=== PATIENT | female | born 1970 | race African-American/Black ===

== ENCOUNTER 2017-03-07 08:51 | Inpatient (IN) | payer MEDICAID, OTHER ==
[2017-03-07] MEDS ORDERED: ALUMINUM/MAGNESIUM 30 ML SUS PO ONE (09:26)
[2017-03-07] MEDS ORDERED: KETOROLAC TROMETHAMINE 30 MG/ML SOL ONE (09:31)
[2017-03-07] MEDS ORDERED: KETOROLAC TROMETHAMINE 30 MG/ML SOL IM ONE (09:39)
[2017-03-07] MEDS ORDERED: LIDOCAINE HCL 2% (VISCOUS) 20 ML SOL MT ONE (09:40)
[2017-03-07 09:42] LABS: HEMATOCRIT 43 % (35-47); MEAN CORPUSCULAR HGB CONC 34.1 gm/dl (32.0-36.0); MEAN CORPUSCULAR VOLUME 94 fL (81-99)
[2017-03-07] MEDS ORDERED: ALUMINUM/MAGNESIUM 30 ML SUS ONE (09:43)
[2017-03-07] MEDS ORDERED: LIDOCAINE HCL 2% (VISCOUS) 20 ML SOL ONE (09:44)
[2017-03-07] MEDS ORDERED: ONDANSETRON 4 MG ODT BU ONE (09:46)
[2017-03-07] MEDS ORDERED: ONDANSETRON 4 MG ODT ONE (09:47)
[2017-03-07 09:54] LABS: ALBUMIN 4.3 gm/dl (3.4-5.0); CALCIUM 8.9 mg/dl (8.5-10.1); POTASSIUM 3.8 mMol/L (3.5-5.1)
[2017-03-07 10:02] LABS: BASOPHILS % (MANUAL) 0 % (0-3); EOSINOPHILS % (MANUAL) 0 % (0-9); LYMPHOCYTES % (MANUAL) 30 % (10-50)
[2017-03-07 10:03] LABS: NORMAL RBCS PRESENT
[2017-03-07] MEDS ORDERED: SODIUM CHLORIDE 0.9% 1000 ML SOL IV ONE (10:20)
[2017-03-07] MEDS ORDERED: HYDROMORPHONE HCL 2 MG/ML 1 ML SOL IV ONE ×2 (10:24→19:11)
[2017-03-07] MEDS ORDERED: HYDROMORPHONE HCL 2 MG/ML 1 ML SOL ONE (10:27)
[2017-03-07] MEDS ORDERED: HYDROMORPHONE HCL 2 MG/ML 1 ML SOL IV PRN (11:24)
[2017-03-07] MEDS: DEXTROSE/SALINE 0.45/KCL 20MEQ 1,000 ML/1,000 ML SOL IV SCH ×2 (12:47→20:01)
[2017-03-07] MEDS: HYDROMORPHONE HCL 2 MG/ML 1 ML SOL IV PRN ×5 (13:33→22:30)
[2017-03-07] MEDS: KETOROLAC TROMETHAMINE 30 MG/ML SOL IV PRN (17:08)
[2017-03-07] MEDS: ONDANSETRON HCL 4 MG/2 ML SOL IV PRN (20:42)
[2017-03-08] MEDS: HYDROMORPHONE HCL 2 MG/ML 1 ML SOL IV PRN ×10 (00:34→22:31)
[2017-03-08] MEDS: KETOROLAC TROMETHAMINE 30 MG/ML SOL IV PRN ×3 (01:46→14:38)
[2017-03-08] MEDS: LORAZEPAM 2 MG/ML SOL IV PRN ×7 (01:49→22:31)
[2017-03-08] MEDS: SODIUM CHLORIDE 0.9% FLUSH 10 ML SOL IV PRN ×8 (02:53→17:00)
[2017-03-08] MEDS: DEXTROSE/SALINE 0.45/KCL 20MEQ 1,000 ML/1,000 ML SOL IV SCH ×3 (02:53→18:05)
[2017-03-08 07:22] LABS: ALBUMIN 3.4 gm/dl (3.4-5.0); CALCIUM 7.7 mg/dl (8.5-10.1); POTASSIUM 3.6 mMol/L (3.5-5.1)
[2017-03-08] MEDS ORDERED: NICOTINE 21 MG PATCH TD PRN (09:06)
[2017-03-08] MEDS: ONDANSETRON HCL 4 MG/2 ML SOL IV PRN (20:13)
[2017-03-09] MEDS: HYDROMORPHONE HCL 2 MG/ML 1 ML SOL IV PRN ×11 (00:54→23:06)
[2017-03-09] MEDS: LORAZEPAM 2 MG/ML SOL IV PRN ×4 (00:54→07:49)
[2017-03-09] MEDS: DEXTROSE/SALINE 0.45/KCL 20MEQ 1,000 ML/1,000 ML SOL IV SCH ×3 (01:00→17:13)
[2017-03-09 07:43] LABS: BASOPHILS % (AUTO) 1 % (0-3); EOSINOPHILS % (AUTO) 2 % (0-9); HEMATOCRIT 36 % (35-47); MEAN CORPUSCULAR HGB CONC 33.3 gm/dl (32.0-36.0); MEAN CORPUSCULAR VOLUME 95 fL (81-99); MONOCYTES % (AUTO) 7.7 % (0-12); NEUTROPHILS % (AUTO) 62.8 % (37-80)
[2017-03-09] MEDS: KETOROLAC TROMETHAMINE 30 MG/ML SOL IV PRN ×3 (07:49→21:06)
[2017-03-09] MEDS: SODIUM CHLORIDE 0.9% FLUSH 10 ML SOL IV PRN ×9 (07:50→23:06)
[2017-03-09 07:53] LABS: CALCIUM 8.1 mg/dl (8.5-10.1); POTASSIUM 3.7 mMol/L (3.5-5.1)
[2017-03-09] MEDS: ONDANSETRON HCL 4 MG/2 ML SOL IV PRN (21:06)
[2017-03-10] MEDS: DEXTROSE/SALINE 0.45/KCL 20MEQ 1,000 ML/1,000 ML SOL IV SCH ×4 (00:17→21:42)
[2017-03-10] MEDS: HYDROMORPHONE HCL 2 MG/ML 1 ML SOL IV PRN ×11 (01:08→23:25)
[2017-03-10] MEDS: SODIUM CHLORIDE 0.9% FLUSH 10 ML SOL IV PRN ×13 (01:08→23:26)
[2017-03-10] MEDS: KETOROLAC TROMETHAMINE 30 MG/ML SOL IV PRN ×3 (03:38→18:12)
[2017-03-10 07:31] LABS: BASOPHILS % (AUTO) 1 % (0-3); EOSINOPHILS % (AUTO) 3 % (0-9); HEMATOCRIT 32 % (35-47); MEAN CORPUSCULAR HGB CONC 33.9 gm/dl (32.0-36.0); MEAN CORPUSCULAR VOLUME 96 fL (81-99); MONOCYTES % (AUTO) 8.3 % (0-12)
[2017-03-10 07:49] LABS: CALCIUM 8.1 mg/dl (8.5-10.1); POTASSIUM 4.2 mMol/L (3.5-5.1)
[2017-03-10] MEDS ORDERED: HYDROMORPHONE HCL 2 MG/ML 1 ML SOL ONE ×4 (16:37→23:20)
[2017-03-10] MEDS: ONDANSETRON HCL 4 MG/2 ML SOL IV PRN (23:25)
[2017-03-11] MEDS ORDERED: HYDROMORPHONE HCL 2 MG/ML 1 ML SOL ONE ×4 (02:00→09:13)
[2017-03-11] MEDS: HYDROMORPHONE HCL 2 MG/ML 1 ML SOL IV PRN ×9 (02:03→23:25)
[2017-03-11] MEDS: KETOROLAC TROMETHAMINE 30 MG/ML SOL IV PRN ×4 (03:07→22:19)
[2017-03-11] MEDS: SODIUM CHLORIDE 0.9% FLUSH 10 ML SOL IV PRN ×7 (03:07→16:11)
[2017-03-11] MEDS: DEXTROSE/SALINE 0.45/KCL 20MEQ 1,000 ML/1,000 ML SOL IV SCH ×3 (04:42→20:04)
[2017-03-11 07:23] LABS: BASOPHILS % (AUTO) 1 % (0-3); EOSINOPHILS % (AUTO) 3 % (0-9); HEMATOCRIT 31 % (35-47); MEAN CORPUSCULAR HGB CONC 34.5 gm/dl (32.0-36.0); MEAN CORPUSCULAR VOLUME 95 fL (81-99); MONOCYTES % (AUTO) 8.1 % (0-12); NEUTROPHILS % (AUTO) 33.4 % (37-80)
[2017-03-11] MEDS: ONDANSETRON HCL 4 MG/2 ML SOL IV PRN ×3 (07:30→20:44)
[2017-03-11 07:33] LABS: ALBUMIN 2.9 gm/dl (3.4-5.0); POTASSIUM 4.6 mMol/L (3.5-5.1)
[2017-03-12] MEDS: HYDROMORPHONE HCL 2 MG/ML 1 ML SOL IV PRN ×5 (01:48→15:29)
[2017-03-12] MEDS: SODIUM CHLORIDE 0.9% FLUSH 10 ML SOL IV PRN ×4 (01:48→11:24)
[2017-03-12] MEDS: DEXTROSE/SALINE 0.45/KCL 20MEQ 1,000 ML/1,000 ML SOL IV SCH ×2 (03:30→04:30)
[2017-03-12] MEDS: ONDANSETRON HCL 4 MG/2 ML SOL IV PRN ×2 (06:42→14:10)
[2017-03-12] MEDS: KETOROLAC TROMETHAMINE 30 MG/ML SOL IV PRN (06:43)
[2017-03-12 07:23] LABS: BASOPHILS % (AUTO) 1 % (0-3); EOSINOPHILS % (AUTO) 3 % (0-9); HEMATOCRIT 33 % (35-47); MEAN CORPUSCULAR HGB CONC 33.9 gm/dl (32.0-36.0); MEAN CORPUSCULAR VOLUME 95 fL (81-99); MONOCYTES % (AUTO) 7.8 % (0-12); NEUTROPHILS % (AUTO) 46.9 % (37-80)
[2017-03-12 07:25] LABS: ALBUMIN 2.9 gm/dl (3.4-5.0); POTASSIUM 4.2 mMol/L (3.5-5.1)
[2017-03-12] MEDS ORDERED: DEXTROSE/SALINE 0.45/KCL 20MEQ 1,000 ML/1,000 ML SOL IV SCH (07:58)
[2017-03-12] MEDS ORDERED: HYDROMORPHONE HCL 2 MG/ML 1 ML SOL IV PRN ×2 (07:59→17:12)
[2017-03-12 08:38] VITALS: PULSE 71; RESP 20
[2017-03-12] MEDS ORDERED: KETOROLAC TROMETHAMINE 30 MG/ML SOL IV PRN (12:37)
[2017-03-12] MEDS ORDERED: PANTOPRAZOLE SODIUM 40 MG/10 ML PDS ONE (14:06)
[2017-03-12 15:47] VITALS: BP 180/109; TEMP 98; O2SAT 98
[2017-03-12] MEDS ORDERED: ACETAMINOPHEN 325 MG PO PRN (17:11)
[2017-03-13] MEDS ORDERED: PANTOPRAZOLE SODIUM 40 MG/10 ML PDS IV SCH (13:00)
== END 2017-03-12 17:54 | disposition left against medical advice (07) | DRG 440 ==
LOC: ED 08:51 → ACUTE CARE 11:00 → UNDOADMIN 11:00 → ACUTE CARE 11:35
PROVIDERS: ADMIT Emergency Medicine; ATTEND Emergency Medicine
DX: K85.90 Acute pancreatitis without necrosis or infection, unspecified (principal); Z91.19 Patient's noncompliance with other medical treatment and regimen; Z72.0 Tobacco use
CPT/HCPCS: 36415; 74177; 80048; 80053; 82150; 85007; 85025; 85027; 94762; 99285; J1170; J1885; J2060; J2405; Q9967

== ENCOUNTER 2017-03-12 21:06 | Inpatient (IN) | payer MEDICAID ==
[2017-03-12] MEDS ORDERED: SODIUM CHLORIDE 0.9% 1000ML 1,000 ML IV ONE (21:49)
[2017-03-12] MEDS ORDERED: HYDROMORPHONE HCL 2 MG/ML 1 ML SOL IV ONE (21:50)
[2017-03-12] MEDS ORDERED: QUETIAPINE FUMARATE 25 MG TAB PO PRN (21:55)
[2017-03-12 22:12] LABS: BASOPHILS % (AUTO) 1 % (0-3); EOSINOPHILS % (AUTO) 3 % (0-9); HEMATOCRIT 33 % (35-47); MEAN CORPUSCULAR HGB CONC 33.8 gm/dl (32.0-36.0); MEAN CORPUSCULAR VOLUME 95 fL (81-99); MONOCYTES % (AUTO) 9.8 % (0-12); NEUTROPHILS % (AUTO) 48.8 % (37-80)
[2017-03-12 22:24] LABS: ALBUMIN 3.2 gm/dl (3.4-5.0); CALCIUM 8.8 mg/dl (8.5-10.1); POTASSIUM 4.6 mMol/L (3.5-5.1)
[2017-03-12] MEDS ORDERED: LORAZEPAM 0.5 MG TAB PO PRN (22:58)
[2017-03-12] MEDS ORDERED: HYDROMORPHONE HCL 2 MG/ML 1 ML SOL IV PRN (23:12)
[2017-03-12] MEDS: ONDANSETRON HCL 4 MG/2 ML SOL IV PRN (23:30)
[2017-03-12] MEDS: NICOTINE 7 MG PATCH TD SCH (23:48)
[2017-03-13] MEDS: OXYCODONE HYDROCHLORIDE 5 MG TAB PO PRN ×5 (00:27→19:36)
[2017-03-13] MEDS: ACETAMINOPHEN 325 MG PO PRN ×4 (02:02→21:11)
[2017-03-13] MEDS: DEXTROSE/SALINE 0.45%/KCL10MEQ 1,000 ML/1,000 ML SOL IV SCH ×2 (03:35→08:33)
[2017-03-13] MEDS: ONDANSETRON HCL 4 MG/2 ML SOL IV PRN ×2 (05:59→11:30)
[2017-03-13] MEDS: SODIUM CHLORIDE 0.9% FLUSH 10 ML SOL IV PRN (06:00)
[2017-03-13 06:59] LABS: BASOPHILS % (AUTO) 1 % (0-3); EOSINOPHILS % (AUTO) 3 % (0-9); HEMATOCRIT 32 % (35-47); MEAN CORPUSCULAR HGB CONC 34.1 gm/dl (32.0-36.0); MEAN CORPUSCULAR VOLUME 93 fL (81-99); MONOCYTES % (AUTO) 9.2 % (0-12); NEUTROPHILS % (AUTO) 42.5 % (37-80)
[2017-03-13] MEDS ORDERED: HYDROXYCHLOROQUINE SULFATE 200 MG TAB PO SCH (09:00)
[2017-03-13] MEDS: QUETIAPINE FUMARATE 25 MG TAB PO PRN ×3 (09:11→21:11)
[2017-03-13] MEDS: PANTOPRAZOLE SODIUM 40 MG ECT PO SCH (09:12)
[2017-03-13] MEDS: SODIUM CHLORIDE 0.9% 1000ML 1,000 ML IV SCH (09:12)
[2017-03-13] MEDS ORDERED: HYDROXYZINE PAMOATE 50 MG CAP PO PRN (13:14)
[2017-03-13] MEDS: NICOTINE 7 MG PATCH TD SCH (19:46)
[2017-03-13] MEDS ORDERED: QUETIAPINE FUMARATE 25 MG TAB PO SCH (21:00)
[2017-03-14] MEDS: SODIUM CHLORIDE 0.9% 1000ML 1,000 ML IV SCH (00:36)
[2017-03-14] MEDS: OXYCODONE HYDROCHLORIDE 5 MG TAB PO PRN ×7 (00:36→23:25)
[2017-03-14] MEDS: ONDANSETRON HCL 4 MG/2 ML SOL IV PRN ×3 (00:36→17:03)
[2017-03-14] MEDS: NICOTINE 7 MG PATCH TD SCH ×2 (00:45→22:23)
[2017-03-14] MEDS: QUETIAPINE FUMARATE 25 MG TAB PO PRN ×3 (07:01→23:25)
[2017-03-14 07:19] LABS: HEMATOCRIT 37 % (35-47); MEAN CORPUSCULAR VOLUME 93 fL (81-99)
[2017-03-14 07:20] LABS: BASOPHILS % (AUTO) 2 % (0-3); EOSINOPHILS % (AUTO) 4 % (0-9); MONOCYTES % (AUTO) 10.4 % (0-12); NEUTROPHILS % (AUTO) 30.4 % (37-80)
[2017-03-14 07:27] LABS: CALCIUM 8.7 mg/dl (8.5-10.1); POTASSIUM 3.9 mMol/L (3.5-5.1)
[2017-03-14] MEDS: PANTOPRAZOLE SODIUM 40 MG ECT PO SCH (08:59)
[2017-03-14] MEDS: ACETAMINOPHEN 325 MG PO PRN ×3 (09:11→22:23)
[2017-03-14] MEDS: SODIUM CHLORIDE 0.9% FLUSH 10 ML SOL IV PRN ×2 (10:15→17:03)
[2017-03-14 16:58] VITALS: O2SAT 97
[2017-03-15] MEDS: OXYCODONE HYDROCHLORIDE 5 MG TAB PO PRN ×3 (05:33→12:50)
[2017-03-15] MEDS: QUETIAPINE FUMARATE 25 MG TAB PO PRN ×2 (05:33→12:50)
[2017-03-15] MEDS: ONDANSETRON HCL 4 MG/2 ML SOL IV PRN (08:13)
[2017-03-15] MEDS: ACETAMINOPHEN 325 MG PO PRN ×2 (08:14→15:25)
[2017-03-15] MEDS: SODIUM CHLORIDE 0.9% FLUSH 10 ML SOL IV PRN (08:14)
[2017-03-15] MEDS: PANTOPRAZOLE SODIUM 40 MG ECT PO SCH (08:14)
[2017-03-15 08:36] VITALS: BP 148/97; PULSE 78; RESP 20; TEMP 97.2
[2017-03-15 09:15] LABS: CALCIUM 8.5 mg/dl (8.5-10.1); POTASSIUM 3.9 mMol/L (3.5-5.1)
[2017-03-15] MEDS ORDERED: INFLUENZA VIRUS VACCINE 0.5 ML SUS IM ONE (11:51)
== END 2017-03-15 15:35 | disposition home or self-care (01) | DRG 440 ==
LOC: ED 21:06 → ACUTE CARE 22:53
PROVIDERS: ADMIT Family Medicine; ATTEND Family Medicine
DX: K85.90 Acute pancreatitis without necrosis or infection, unspecified (principal); F41.1 Generalized anxiety disorder; G47.09 Other insomnia
CPT/HCPCS: 36415; 80053; 82150; 85025; 90686; 99070; 99282; J1170; J2405; G0008

== ENCOUNTER 2017-04-24 09:44 | Emergency (ER) | payer MEDICAID, OTHER ==
[2017-04-24 10:19] VITALS: BP 146/93; PULSE 104; RESP 18; TEMP 98.6; O2SAT 100
[2017-04-24] MEDS ORDERED: LIDOCAINE HCL 2% (VISCOUS) 20 ML SOL MT ONE (10:19)
[2017-04-24] MEDS ORDERED: LIDOCAINE HCL 2% (VISCOUS) 20 ML SOL ONE (10:22)
== END 2017-04-24 10:28 | disposition home or self-care (01) ==
LOC: ED 09:44
DX: J02.9 Acute pharyngitis, unspecified (principal)
CPT/HCPCS: 99282; 99283

== ENCOUNTER 2017-10-18 21:18 | Inpatient (IN) | payer OTHER ==
[2017-10-18] MEDS ORDERED: MORPHINE SULFATE 10 MG/ML SOL IV ONE (22:38)
[2017-10-18] MEDS ORDERED: SODIUM CHLORIDE 0.9% 1000ML 1,000 ML IV SCH (22:45)
[2017-10-18] MEDS ORDERED: MORPHINE SULFATE 10 MG/ML SOL ONE (22:45)
[2017-10-18 23:02] LABS: BASOPHILS % (AUTO) 1 % (0-3); EOSINOPHILS % (AUTO) 1 % (0-9); HEMATOCRIT 36 % (35-47); MEAN CORPUSCULAR HGB CONC 35.6 gm/dl (32.0-36.0); MEAN CORPUSCULAR VOLUME 90 fL (81-99); MONOCYTES % (AUTO) 6.8 % (0-12); NEUTROPHILS % (AUTO) 56.9 % (37-80)
[2017-10-18 23:16] LABS: ALBUMIN 3.9 gm/dl (3.4-5.0); CALCIUM 8.6 mg/dl (8.5-10.1); POTASSIUM 3.6 mMol/L (3.5-5.1)
[2017-10-18] MEDS ORDERED: HYDROMORPHONE HCL 2 MG/ML SOL IV ONE (23:26)
[2017-10-18] MEDS ORDERED: HYDROMORPHONE HCL 2 MG/ML SOL ONE (23:29)
[2017-10-18] MEDS ORDERED: ONDANSETRON HCL 4 MG/2 ML SOL IV ONE (23:32)
[2017-10-18] MEDS ORDERED: ONDANSETRON HCL 4 MG/2 ML SOL ONE (23:33)
[2017-10-19] MEDS ORDERED: MORPHINE SULFATE 30 MG VIAL IV PRN (00:02)
[2017-10-19] MEDS ORDERED: NALOXONE HYDROCHLORIDE 0.4 MG/ML SOL IV PRN (00:02)
[2017-10-19] MEDS ORDERED: SODIUM CHLORIDE 0.9% 50 ML 25 ML IV PRN (00:04)
[2017-10-19] MEDS ORDERED: ONDANSETRON HCL 4 MG/2 ML 4 MG in SODIUM CHLORIDE 0.9% 100 ML 100 ML IV ONE (00:04)
[2017-10-19] MEDS ORDERED: QUETIAPINE FUMARATE 25 MG TAB PO SCH (00:15)
[2017-10-19] MEDS: SODIUM CHLORIDE 0.9% FLUSH 10 ML SOL IV SCH ×3 (00:57→16:05)
[2017-10-19] MEDS: HYDROMORPHONE HCL 2 MG/ML SOL IV PRN ×2 (01:21→10:56)
[2017-10-19] MEDS: SODIUM CHLORIDE 0.9% 1000ML 1,000 ML IV SCH ×6 (01:56→23:36)
[2017-10-19] MEDS ORDERED: HYDROMORPHONE 1 MG/ML SYRINGE IV ONE ×2 (02:34→09:49)
[2017-10-19] MEDS ORDERED: HYDROMORPHONE HCL 2 MG/ML SOL IV ONE (06:40)
[2017-10-19 07:29] LABS: BASOPHILS % (AUTO) 1 % (0-3); EOSINOPHILS % (AUTO) 1 % (0-9); HEMATOCRIT 32 % (35-47); MEAN CORPUSCULAR HGB CONC 35.8 gm/dl (32.0-36.0); MEAN CORPUSCULAR VOLUME 90 fL (81-99); MONOCYTES % (AUTO) 7.9 % (0-12); NEUTROPHILS % (AUTO) 65.6 % (37-80)
[2017-10-19 07:33] LABS: ALBUMIN 3.4 gm/dl (3.4-5.0); CALCIUM 7.9 mg/dl (8.5-10.1); POTASSIUM 3.6 mMol/L (3.5-5.1)
[2017-10-19] MEDS: ONDANSETRON HCL 4 MG/2 ML SOL IV PRN ×2 (09:33→22:07)
[2017-10-19] MEDS ORDERED: KETOROLAC TROMETHAMINE 30 MG/ML SOL ONE (09:55)
[2017-10-19] MEDS: KETOROLAC TROMETHAMINE 30 MG/ML SOL IV SCH ×3 (09:58→21:31)
[2017-10-19] MEDS: QUETIAPINE FUMARATE 25 MG TAB PO SCH (21:27)
[2017-10-20 00:09] VITALS: RESP 16
[2017-10-20] MEDS: SODIUM CHLORIDE 0.9% FLUSH 10 ML SOL IV SCH ×7 (03:25→22:55)
[2017-10-20] MEDS: KETOROLAC TROMETHAMINE 30 MG/ML SOL IV SCH ×3 (03:42→15:55)
[2017-10-20] MEDS: SODIUM CHLORIDE 0.9% 1000ML 1,000 ML IV SCH ×6 (03:44→22:55)
[2017-10-20] MEDS: ONDANSETRON HCL 4 MG/2 ML SOL IV PRN ×2 (10:27→16:39)
[2017-10-20] MEDS ORDERED: HYDROMORPHONE 1 MG/ML SYRINGE IV ONE (11:55)
[2017-10-20] MEDS: HYDROMORPHONE HYDROCHLORIDE 2 MG TAB PO SCH ×2 (17:40→20:54)
[2017-10-20] MEDS ORDERED: ACETAMINOPHEN 325 MG PO PRN (19:00)
[2017-10-20] MEDS: ACETAMINOPHEN 500 MG 500 MG TAB PO SCH (19:14)
[2017-10-20] MEDS: QUETIAPINE FUMARATE 25 MG TAB PO SCH (20:55)
[2017-10-20] MEDS: ONDANSETRON 4 MG ODT BU SCH (22:55)
[2017-10-21] MEDS: ACETAMINOPHEN 500 MG 500 MG TAB PO SCH ×2 (00:53→07:11)
[2017-10-21] MEDS: HYDROMORPHONE HYDROCHLORIDE 2 MG TAB PO SCH ×3 (00:54→09:02)
[2017-10-21] MEDS: SODIUM CHLORIDE 0.9% 1000ML 1,000 ML IV SCH (03:21)
[2017-10-21] MEDS: ONDANSETRON 4 MG ODT BU SCH ×2 (04:55→10:58)
[2017-10-21] MEDS: SODIUM CHLORIDE 0.9% FLUSH 10 ML SOL IV SCH (07:32)
[2017-10-21 08:05] VITALS: BP 135/87; PULSE 71; TEMP 97.4; O2SAT 98
[2017-10-21] MEDS ORDERED: INFLUENZA VIRUS VACCINE 0.5 ML SUS IM ONE (08:33)
[2017-10-21] MEDS ORDERED: PNEUMOC 13-VAL CONJ-DIP CRM/PF 0.5 ML SYRINGE IM ONE (08:33)
== END 2017-10-21 12:40 | disposition home or self-care (01) | DRG 282 ==
LOC: ED 21:18 → ACUTE CARE 23:50
PROVIDERS: ADMIT Family Medicine; ATTEND Family Medicine
DX: K85.20 Alcohol induced acute pancreatitis without necrosis or infection (principal); F41.1 Generalized anxiety disorder
CPT/HCPCS: 36415; 80053; 82150; 85025; 90670; 90686; 94760; 96365; 96374; 96375; 99221; 99231; 99232; 99285; J1170; J1885; J2270; J2405; G0008

== ENCOUNTER 2018-04-26 22:32 | Inpatient (IN) | payer OTHER ==
[2018-04-26 23:10] LABS: BASOPHILS % (AUTO) 1 % (0-3); EOSINOPHILS % (AUTO) 2 % (0-9); HEMATOCRIT 38 % (35-47); HEMOGLOBIN 13.3 gm/dl (12.0-15.5); LYMPHOCYTES % (AUTO) 41.7 % (10-50); MEAN CORPUSCULAR HEMOGLOBIN 32.8 pg (27.0-32.0); MEAN CORPUSCULAR HGB CONC 35.1 gm/dl (32.0-36.0); MEAN CORPUSCULAR VOLUME 93 fL (81-99)
[2018-04-26] MEDS ORDERED: MORPHINE SULFATE 10 MG/ML SOL IV ONE (23:11)
[2018-04-26] MEDS ORDERED: MORPHINE SULFATE 10 MG/ML SOL ONE (23:13)
[2018-04-26] MEDS: SODIUM CHLORIDE 0.9% 1000ML 1,000 ML IV SCH (23:15)
[2018-04-26 23:22] LABS: ALBUMIN 3.8 gm/dl (3.4-5.0); BILIRUBIN,TOTAL 0.3 mg/dl (0.2-1.0); CALCIUM 8.7 mg/dl (8.5-10.1); CARBON DIOXIDE 18.8 mEq/L (21-32); CREATININE 0.87 mg/dl (0.60-1.00); POTASSIUM 3.7 mMol/L (3.5-5.1)
[2018-04-26] MEDS ORDERED: QUETIAPINE FUMARATE 25 MG TAB PO SCH (23:45)
[2018-04-27] MEDS ORDERED: SODIUM CHLORIDE 0.9% 1000ML 1,000 ML IV ONE (00:20)
[2018-04-27] MEDS: HYDROMORPHONE 1 MG/ML SYRINGE IV PRN ×6 (00:53→23:44)
[2018-04-27] MEDS: ONDANSETRON HCL 4 MG/2 ML SOL IV PRN ×3 (01:00→20:17)
[2018-04-27] MEDS: SODIUM CHLORIDE 0.9% 1000ML 1,000 ML IV SCH ×5 (01:09→22:07)
[2018-04-27] MEDS: ENOXAPARIN 30 MG SOL SC SCH ×4 (01:11→22:15)
[2018-04-27] MEDS ORDERED: HYDROMORPHONE 1 MG/ML SYRINGE ONE ×2 (03:52→06:46)
[2018-04-27] MEDS ORDERED: SODIUM CHLORIDE 0.9% 1000 ML SOL IV SCH (06:00)
[2018-04-27 08:37] LABS: CALCIUM 7.9 mg/dl (8.5-10.1); CARBON DIOXIDE 19.8 mEq/L (21-32); CREATININE 0.77 mg/dl (0.60-1.00); POTASSIUM 3.6 mMol/L (3.5-5.1)
[2018-04-27] MEDS: KETOROLAC TROMETHAMINE 30 MG/ML SOL IV PRN ×3 (09:33→21:34)
[2018-04-27] MEDS ORDERED: HYDROMORPHONE HCL 2 MG/ML SOL ONE (10:09)
[2018-04-27] MEDS: HYDROMORPHONE HCL 2 MG/ML SOL IV PRN ×2 (13:34→16:45)
[2018-04-27] MEDS: QUETIAPINE FUMARATE 25 MG TAB PO SCH ×2 (19:56→21:37)
[2018-04-28] MEDS: HYDROMORPHONE HCL 2 MG/ML SOL IV PRN ×2 (03:05→13:30)
[2018-04-28] MEDS: SODIUM CHLORIDE 0.9% 1000ML 1,000 ML IV SCH (03:16)
[2018-04-28] MEDS ORDERED: HYDROMORPHONE 1 MG/ML SYRINGE ONE (06:18)
[2018-04-28] MEDS: HYDROMORPHONE 1 MG/ML SYRINGE IV PRN (06:22)
[2018-04-28 07:18] LABS: BASOPHILS % (AUTO) 1 % (0-3); CALCIUM 7.6 mg/dl (8.5-10.1); CARBON DIOXIDE 16.9 mEq/L (21-32); CREATININE 0.73 mg/dl (0.60-1.00); EOSINOPHILS % (AUTO) 4 % (0-9); HEMATOCRIT 31 % (35-47); HEMOGLOBIN 10.8 gm/dl (12.0-15.5); LYMPHOCYTES % (AUTO) 66.5 % (10-50); MEAN CORPUSCULAR HEMOGLOBIN 32.9 pg (27.0-32.0); MEAN CORPUSCULAR VOLUME 94 fL (81-99); MONOCYTES % (AUTO) 2.7 % (0-12); NEUTROPHILS % (AUTO) 25.8 % (37-80); POTASSIUM 3.6 mMol/L (3.5-5.1)
[2018-04-28] MEDS: KETOROLAC TROMETHAMINE 30 MG/ML SOL IV PRN ×2 (07:31→14:09)
[2018-04-28] MEDS ORDERED: LACTATED RINGERS with DEXTROSE 1,000 ML IV SCH (08:00)
[2018-04-28 08:11] LABS: ABG PH 7.27 (7.35-7.45)
[2018-04-28 08:25] LABS: CHOL/HDL RATIO 4.2 (2.2-4.5); LDL/HDL RATIO 2.5 (1.1-3.1)
[2018-04-28] MEDS ORDERED: HYDROMORPHONE HCL 2 MG/ML SOL IV ONE (08:50)
[2018-04-28] MEDS ORDERED: PANTOPRAZOLE SODIUM 40 MG/10 ML PDS IV SCH (09:00)
[2018-04-28] MEDS: ENOXAPARIN 30 MG SOL SC SCH (09:43)
[2018-04-28] MEDS: ONDANSETRON HCL 4 MG/2 ML SOL IV PRN (09:53)
[2018-04-28] MEDS ORDERED: SODIUM BICARBONATE IV SCH (15:00)
[2018-04-28] MEDS ORDERED: DEXTROSE IV SCH (15:00)
[2018-04-28] MEDS ORDERED: SODIUM BICARBONATE 8.4%(ADULT) 1 MEQ/ML SOL IV ONE (15:01)
[2018-04-28 15:26] VITALS: BP 164/92; PULSE 69; RESP 20; TEMP 97; O2SAT 100
== END 2018-04-28 16:10 | disposition short-term general hospital (02) | DRG 282 ==
LOC: ED 22:32 → ACUTE CARE 23:52
PROVIDERS: ADMIT Emergency Medicine; ATTEND Emergency Medicine
DX: K85.90 Acute pancreatitis without necrosis or infection, unspecified (principal); E87.2 Acidosis; R74.8 Abnormal levels of other serum enzymes
CPT/HCPCS: 36415; 36600; 74170; 80048; 80053; 80061; 80307; 82150; 82803; 84703; 85025; 96365; 96374; 99222; 99238; 99283; 99284; J1170; J1885; J2270; J2405; Q9967; A9270-GY; J1650

== ENCOUNTER 2018-05-14 18:17 | Emergency (ER) | payer OTHER ==
[2018-05-14] MEDS: SODIUM CHLORIDE 0.9% FLUSH 10 ML SOL IV PRN ×2 (18:50→21:15)
[2018-05-14 18:56] LABS: BASOPHILS % (AUTO) 1 % (0-3); EOSINOPHILS % (AUTO) 1 % (0-9); HEMATOCRIT 39 % (35-47); HEMOGLOBIN 13.3 gm/dl (12.0-15.5); LYMPHOCYTES % (AUTO) 43.3 % (10-50); MEAN CORPUSCULAR HEMOGLOBIN 31.5 pg (27.0-32.0); MEAN CORPUSCULAR HGB CONC 34.1 gm/dl (32.0-36.0); MEAN CORPUSCULAR VOLUME 92 fL (81-99); NEUTROPHILS % (AUTO) 48.5 % (37-80)
[2018-05-14] MEDS ORDERED: SODIUM CHLORIDE 0.9% 1000ML 1,000 ML IV ONE (19:00)
[2018-05-14] MEDS ORDERED: HYDROMORPHONE HCL 2 MG/ML SOL IV ONE ×2 (19:02→20:52)
[2018-05-14] MEDS ORDERED: HYDROMORPHONE HCL 2 MG/ML SOL ONE ×2 (19:04→21:14)
[2018-05-14 19:07] LABS: ALBUMIN 3.6 gm/dl (3.4-5.0); BILIRUBIN,TOTAL 0.2 mg/dl (0.2-1.0); CALCIUM 8.6 mg/dl (8.5-10.1); CARBON DIOXIDE 21.4 mEq/L (21-32); CREATININE 0.91 mg/dl (0.60-1.00); POTASSIUM 3.3 mMol/L (3.5-5.1); TOTAL PROTEIN 7.5 gm/dl (6.4-8.2)
[2018-05-14] MEDS ORDERED: ONDANSETRON HCL 4 MG/2 ML SOL IV ONE (19:15)
[2018-05-14] MEDS ORDERED: ONDANSETRON HCL 4 MG/2 ML SOL ONE (19:16)
[2018-05-14 22:05] VITALS: BP 126/80; PULSE 89; RESP 16; TEMP 97.3; O2SAT 97
== END 2018-05-14 22:28 | disposition short-term general hospital (02) ==
LOC: ED 18:17
DX: K86.1 Other chronic pancreatitis (principal); R10.10 Upper abdominal pain, unspecified; R11.2 Nausea with vomiting, unspecified
CPT/HCPCS: 74177; 80053; 85025; 96365; 96366; 96374; 96375; 99284; 99285; J1170; J2405; Q9967

== ENCOUNTER 2018-05-29 15:50 | Emergency (ER) | payer OTHER ==
[2018-05-29 15:50] VITALS: O2SAT 97
[2018-05-29 16:21] VITALS: RESP 16; TEMP 97.9
[2018-05-29] MEDS ORDERED: HYDROMORPHONE 1 MG/ML SYRINGE IV ONE ×2 (16:49→18:10)
[2018-05-29] MEDS ORDERED: ONDANSETRON HCL 4 MG/2 ML SOL IV ONE (16:49)
[2018-05-29] MEDS ORDERED: SODIUM CHLORIDE 0.9% 1000ML 1,000 ML IV ONE (16:49)
[2018-05-29 17:04] LABS: BASOPHILS % (AUTO) 1 % (0-3); EOSINOPHILS % (AUTO) 2 % (0-9); HEMATOCRIT 31 % (35-47); HEMOGLOBIN 10.6 gm/dl (12.0-15.5); LYMPHOCYTES % (AUTO) 27.4 % (10-50); MEAN CORPUSCULAR HEMOGLOBIN 30.8 pg (27.0-32.0); MEAN CORPUSCULAR HGB CONC 34.2 gm/dl (32.0-36.0); MEAN CORPUSCULAR VOLUME 90 fL (81-99)
[2018-05-29] MEDS ORDERED: HYDROMORPHONE HCL 2 MG/ML SOL ONE ×2 (17:05→18:12)
[2018-05-29] MEDS ORDERED: ONDANSETRON HCL 4 MG/2 ML SOL ONE (17:05)
[2018-05-29 17:19] LABS: ALBUMIN 2.7 gm/dl (3.4-5.0); ALKALINE PHOSPHATASE 69 IU/L (46-116); ALT 11 IU/L (14-63); AMYLASE 103 IU/L (25-115); AST 7 IU/L (15-37); BLOOD UREA NITROGEN 11 mg/dl (7-18); CALCIUM 8.9 mg/dl (8.5-10.1); CARBON DIOXIDE 27.5 mEq/L (21-32); CHLORIDE 104 mMol/L (98-107); CREATININE 0.81 mg/dl (0.60-1.00); GLOM FILT RATE 92 mL/min (>60); GLUCOSE 86 mg/dl (74-106); POTASSIUM 3.6 mMol/L (3.5-5.1); SODIUM 140 mMol/L (136-145); TOTAL PROTEIN 7.3 gm/dl (6.4-8.2)
[2018-05-29 17:30] LABS: BILIRUBIN,TOTAL < 0.1 mg/dl (0.2-1.0)
[2018-05-29 18:37] VITALS: BP 126/83; PULSE 82
== END 2018-05-29 19:16 | disposition short-term general hospital (02) ==
LOC: ED 15:50
DX: K85.90 Acute pancreatitis without necrosis or infection, unspecified (principal)
CPT/HCPCS: 80053; 82150; 85025; 96365; 96374; 96375; 99283; 99285; J1170; J2405

== ENCOUNTER 2018-06-03 18:56 | Emergency (ER) | payer OTHER ==
[2018-06-03 19:08] VITALS: TEMP 98
[2018-06-03] MEDS ORDERED: SODIUM CHLORIDE 0.9% 1000ML 1,000 ML IV SCH (20:00)
[2018-06-03] MEDS ORDERED: HYDROMORPHONE HCL 2 MG/ML SOL IV ONE (20:00)
[2018-06-03] MEDS ORDERED: ONDANSETRON HCL 4 MG/2 ML SOL IV ONE (20:01)
[2018-06-03] MEDS ORDERED: ONDANSETRON HCL 4 MG/2 ML SOL ONE (20:19)
[2018-06-03] MEDS ORDERED: HYDROMORPHONE 1 MG/ML SYRINGE ONE (20:20)
[2018-06-03 20:37] LABS: BASOPHILS % (AUTO) 0 % (0-3); EOSINOPHILS % (AUTO) 1 % (0-9); HEMATOCRIT 35 % (35-47); MEAN CORPUSCULAR HGB CONC 34.3 gm/dl (32.0-36.0); MEAN CORPUSCULAR VOLUME 90 fL (81-99); NEUTROPHILS % (AUTO) 73.9 % (37-80)
[2018-06-03 20:54] LABS: ALBUMIN 3.4 gm/dl (3.4-5.0); CHLORIDE 100 mMol/L (98-107); POTASSIUM 3.7 mMol/L (3.5-5.1); SODIUM 138 mMol/L (136-145)
[2018-06-03 21:13] LABS: ALKALINE PHOSPHATASE 74 IU/L (46-116); ALT 15 IU/L (14-63); AMYLASE 105 IU/L (25-115); AST 9 IU/L (15-37); BLOOD UREA NITROGEN 20 mg/dl (7-18); CALCIUM 9.2 mg/dl (8.5-10.1); CARBON DIOXIDE 30.4 mEq/L (21-32); CREATININE 0.79 mg/dl (0.60-1.00); GLOM FILT RATE 95 mL/min (>60); GLUCOSE 102 mg/dl (74-106)
[2018-06-03 21:15] LABS: BILIRUBIN,TOTAL < 0.2 mg/dl (0.2-1.0)
[2018-06-03] MEDS ORDERED: KETOROLAC TROMETHAMINE 30 MG/ML SOL IV ONE (21:39)
[2018-06-03] MEDS ORDERED: TRAMADOL HYDROCHLORIDE 50 MG TAB PO ONE (21:40)
[2018-06-03] MEDS ORDERED: TRAMADOL HYDROCHLORIDE 50 MG TAB ONE (21:42)
[2018-06-03] MEDS ORDERED: KETOROLAC TROMETHAMINE 30 MG/ML SOL ONE (21:42)
[2018-06-04 00:17] VITALS: RESP 18
[2018-06-04 00:20] VITALS: BP 148/110; PULSE 88; O2SAT 98
== END 2018-06-03 22:19 | disposition home or self-care (01) ==
LOC: ED 18:56
DX: K86.89 Other specified diseases of pancreas (principal)
CPT/HCPCS: 36415; 80053; 82150; 85025; 96365; 96374; 96375; 99284; 99285; J1885; J2405; A9270-GY; J1170

== ENCOUNTER 2018-06-23 12:28 | Emergency (ER) | payer OTHER ==
[2018-06-23 12:35] VITALS: RESP 20; TEMP 96.2
[2018-06-23] MEDS ORDERED: SODIUM CHLORIDE 0.9% FLUSH 10 ML SOL IV PRN (12:47)
[2018-06-23] MEDS ORDERED: HYDROMORPHONE 1 MG/ML SYRINGE IV ONE (12:47)
[2018-06-23] MEDS ORDERED: ONDANSETRON HCL 4 MG/2 ML SOL IV ONE (12:47)
[2018-06-23] MEDS ORDERED: SODIUM CHLORIDE 0.9% 1000ML 1,000 ML IV ONE (12:48)
[2018-06-23] MEDS ORDERED: HYDROMORPHONE 1 MG/ML SYRINGE ONE (12:49)
[2018-06-23] MEDS ORDERED: ONDANSETRON HCL 4 MG/2 ML SOL ONE (12:50)
[2018-06-23 13:22] LABS: BASOPHILS % (AUTO) 1 % (0-3); EOSINOPHILS % (AUTO) 2 % (0-9); HEMATOCRIT 41 % (35-47); HEMOGLOBIN 12.9 gm/dl (12.0-15.5); LYMPHOCYTES % (AUTO) 30.88 % (10-50); MEAN CORPUSCULAR HEMOGLOBIN 30.4 pg (27.0-32.0); MEAN CORPUSCULAR HGB CONC 31.7 gm/dl (32.0-36.0); MEAN CORPUSCULAR VOLUME 96 fL (81-99); MONOCYTES % (AUTO) 6.2 % (0-12); NEUTROPHILS % (AUTO) 60.5 % (37-80)
[2018-06-23] MEDS ORDERED: LORAZEPAM 2 MG/ML SOL IV ONE (13:28)
[2018-06-23] MEDS ORDERED: PROCHLORPERAZINE EDISYLATE 5 MG/ML SOL IV ONE (13:32)
[2018-06-23] MEDS ORDERED: LORAZEPAM 2 MG/ML SOL ONE (13:43)
[2018-06-23] MEDS ORDERED: PROCHLORPERAZINE EDISYLATE 5 MG/ML SOL ONE (13:43)
[2018-06-23 13:55] LABS: ALBUMIN 3.7 gm/dl (3.4-5.0); BILIRUBIN,TOTAL 0.2 mg/dl (0.2-1.0); CALCIUM 9.4 mg/dl (8.5-10.1); CARBON DIOXIDE 22.9 mEq/L (21-32); CREATININE 0.9 mg/dl (0.60-1.00); POTASSIUM 4.3 mMol/L (3.5-5.1); TOTAL PROTEIN 8.4 gm/dl (6.4-8.2)
[2018-06-23 17:01] VITALS: BP 120/98; PULSE 75; O2SAT 93
== END 2018-06-23 15:57 | disposition home or self-care (01) ==
LOC: ED 12:28
DX: K85.90 Acute pancreatitis without necrosis or infection, unspecified (principal)
CPT/HCPCS: 36415; 74177; 80053; 85025; 96365; 96374; 96375; 99284; 99285; J0780; J2060; J2405; Q9967; J1170